=== PATIENT | female | born 1985 | race Caucasian/White ===

== ENCOUNTER 2018-08-20 13:06 | Emergency (ER) | payer SELFPAY ==
[2018-08-20] MEDS ORDERED: ONDANSETRON 4 MG (ODT) TAB ONE (14:20)
[2018-08-20] MEDS ORDERED: MEPERIDINE HCL 50 MG/ML AMP ONE (14:20)
--- NOTE | 2018-08-20 14:50 | ER ---
Nurse's Notes [facility] Name: Erin Harper Age: 33 yrs Sex: Female : 1985 Arrival Date: 08/20/2018 Time: 13:08 Bed 24 Private MD: None, None Diagnosis: Muscle spasm Presentation: 08/20 13:10 Presenting complaint: Patient states: neck pain x 1 day with limited ROM. Transition of sv care: patient was not received from another setting of care. Onset of symptoms was August 19, 2018. Care prior to arrival: None. 13:10 Method Of Arrival: Ambulatory sv 13:10 Acuity: ARCHIE 4 sv 13:15 Risk Assessment: Do you want to hurt yourself or someone else? Patient reports no ca1 desire to harm self or others. 13:15 Initial Sepsis Screen: Does the patient meet any 2 criteria? No. Patient's initial ca1 sepsis screen is negative. Does the patient have a suspected source of infection? No. Patient's initial sepsis screen is negative. Triage Assessment: 13:10 General: Appears in no apparent distress. uncomfortable, Behavior is cooperative, sv appropriate for age. Neuro: Level of Consciousness is awake, alert, obeys commands, Oriented to person, place, time, situation, Gait is steady. Respiratory: Respiratory effort is even, unlabored, Respiratory pattern is regular, symmetrical. 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 - Social history:: Smoking status: Patient uses tobacco products, smokes one-half pack cigarettes per day. - Ebola Screening: : No symptoms or risks identified at this time. Screenin:15 Abuse screen: Denies threats or abuse. Denies injuries from another. Nutritional ca1 screening: No deficits noted. Tuberculosis screening: No symptoms or risk factors identified. Fall Risk None identified. Assessment: 13:15 General: Appears in no apparent distress. uncomfortable, Behavior is calm, cooperative, ca1 appropriate for age. Pain: Complains of pain in shoulder, neck. Pain currently is 10 out of 10 on a pain scale. Quality of pain is described as throbbing, Pain began 1 day ago. Is continuous, Aggravated by repositioning, turning the neck sideways, up and down. Neuro: Level of Consciousness is awake, alert, obeys commands, Oriented to person, place, time, situation, Denies dizziness. Cardiovascular: Heart tones S1 S2 present Capillary refill < 3 seconds Patient's skin is warm and dry. Respiratory: Airway is patent Respiratory effort is even, unlabored, Respiratory pattern is regular, symmetrical, Breath sounds are clear bilaterally. GI: Abdomen is round non-distended, Bowel sounds present X 4 quads. Abd is soft and non tender X 4 quads. : No deficits noted. No signs and/or symptoms were reported regarding the genitourinary system. EENT: No deficits noted. No signs and/or symptoms were reported regarding the EENT system. EENT: No deficits noted. No signs and/or symptoms were reported regarding the EENT system. Derm: Skin is intact, is healthy with good turgor, Skin is pink, warm \\T\\ dry. Musculoskeletal: Circulation, motion, and sensation intact. Capillary refill < 3 seconds. 14:33 Reassessment: Patient appears in no apparent distress at this time. Patient and/or ca1 family updated on plan of care and expected duration. Pain level reassessed. Patient is alert, oriented x 3, equal unlabored respirations, skin warm/dry/pink. Pt states her neck "snapped" while she was trying to straighten it. And she is still in pain, provider notfied. 15:00 Reassessment: Patient appears in no apparent distress at this time. Patient is alert, ca1 oriented x 3, equal unlabored respirations, skin warm/dry/pink. Instructed to avoid driving for today. Reported that she will be driven by her mom to home Patient states feeling better. Vital Signs: 13:11 BP 112 / 90; Pulse 99; Resp 20; Temp 97.5; Pulse Ox 99% ; Weight 108.86 kg; Height 5 sv ft. 1 in. (154.94 cm); Pain 9/10; 14:33 BP 126 / 92; Pulse 63; Resp 17 S; Pulse Ox 96% on R/A; ca1 15:00 BP 124 / 79; Pulse 69; Resp 18 S; Pulse Ox 99% on R/A; ca1 13:11 Body Mass Index 45.35 (108.86 kg, 154.94 cm) ED Course: 13:08 Patient arrived in ED. mr 13:08 None, None is Private Physician. mr 13:10 Triage completed. sv 13:11 Arm band placed on. sv 13:14 America Funes, RN is Primary Nurse. ca1 13:15 Patient has correct armband on for positive identification. Placed in gown. Bed in low ca1 position. Call light in reach. Side rails up X 1. Pulse ox on. NIBP on. Warm blanket given. 13:17 Nas Gannon PA is PHCP. jr8 13:17 Alexandro Boyd MD is Attending Physician. jr8 15:01 No provider procedures requiring assistance completed. Patient did not have IV access ca1 during this emergency room visit. Administered Medications: 14:05 Drug: Zofran 4 mg Route: PO; ca1 15:01 Follow up: Response: No adverse reaction; Nausea is decreased ca1 14:06 Drug: Demerol 50 mg Route: IM; Site: right deltoid; ca1 15:01 Follow up: Response: No adverse reaction; Pain is decreased ca1 Outcome: 14:49 Discharge ordered by . jr8 15:01 Discharged to home ambulatory, with family. ca1 15:01 Condition: stable 15:01 Discharge instructions given to patient, Instructed on discharge instructions, follow up and referral plans. medication usage, Demonstrated understanding of instructions, follow-up care, medications, Prescriptions given X 3. 15:03 Patient left the ED. ca1 Signatures: Kandy Spencer RN RN Radha Tovar mr Nas Gannon PA PA jr8 America Funes RN RN ca1 Corrections: (The following items were deleted from the chart) 13:22 13:10 Presenting complaint: Patient states: neck pain x 1 day. sv sv 15:03 15:00 Reassessment: Patient appears in no apparent distress at this time. Patient is ca1 alert, oriented x 3, equal unlabored respirations, skin warm/dry/pink. Patient states feeling better. ca1
--- NOTE | 2018-08-20 14:50 | EDPHYS ---
Physician Documentation [facility] Name: Erin Harper Age: 33 yrs Sex: Female : 1985 Arrival Date: 08/20/2018 Time: 13:08 Bed 24 Private MD: None, None ED Physician Alexandro Boyd HPI: 08/20 13:50 This 33 yrs old Female presents to ER via Ambulatory with complaints of Neck jr8 Problem. 13:50 The patient or guardian complains of decreased range of motion, pain. The symptoms are jr8 located on the posterior neck. Onset: The symptoms/episode began/occurred acutely, yesterday. Context: The problem was sustained at work, The neck injury/problem resulted from from unknown cause. Associated signs and symptoms: The patient has no apparent associated signs or symptoms. The pain does not radiate. Modifying factors: The symptoms are alleviated by nothing. the symptoms are aggravated by movement, pressure. Severity of symptoms: At their worst the symptoms were moderate, in the emergency department the symptoms are unchanged. The patient has not experienced similar symptoms in the past. The patient has not recently seen a physician. Stated that while at work started to feel pain to posterior neck. Denies trauma or work related incident. Stated that as the night went on and then while sleeping last night pain became more persistent. Cannot tolerate pain now. Denies dysphagia or fevers. 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 - Social history:: Smoking status: Patient uses tobacco products, smokes one-half pack cigarettes per day. - Ebola Screening: : No symptoms or risks identified at this time. ROS: 13:50 Eyes: Negative for injury, pain, redness, and discharge, ENT: Negative for injury, jr8 pain, and discharge, Cardiovascular: Negative for chest pain, palpitations, and edema, Respiratory: Negative for shortness of breath, cough, wheezing, and pleuritic chest pain, Abdomen/GI: Negative for abdominal pain, nausea, vomiting, diarrhea, and constipation, Back: Negative for injury and pain, MS/Extremity: Negative for injury and deformity, Skin: Negative for injury, rash, and discoloration, Neuro: Negative for headache, weakness, numbness, tingling, and seizure. 13:50 Neck: Positive for pain with movement, pain at rest, stiffness, tenderness. Exam: 13:50 Eyes: Pupils equal round and reactive to light, extra-ocular motions intact. Lids and jr8 lashes normal. Conjunctiva and sclera are non-icteric and not injected. Cornea within normal limits. Periorbital areas with no swelling, redness, or edema. ENT: Nares patent. No nasal discharge, no septal abnormalities noted. Tympanic membranes are normal and external auditory canals are clear. Oropharynx with no redness, swelling, or masses, exudates, or evidence of obstruction, uvula midline. Mucous membranes moist. Cardiovascular: Regular rate and rhythm with a normal S1 and S2. No gallops, murmurs, or rubs. Normal PMI, no JVD. No pulse deficits. Respiratory: Lungs have equal breath sounds bilaterally, clear to auscultation and percussion. No rales, rhonchi or wheezes noted. No increased work of breathing, no retractions or nasal flaring. Abdomen/GI: Soft, non-tender, with normal bowel sounds. No distension or tympany. No guarding or rebound. No evidence of tenderness throughout. Skin: Warm, dry with normal turgor. Normal color with no rashes, no lesions, and no evidence of cellulitis. MS/ Extremity: Pulses equal, no cyanosis. Neurovascular intact. Full, normal range of motion. Neuro: Awake and alert, GCS 15, oriented to person, place, time, and situation. Cranial nerves II-XII grossly intact. Motor strength 5/5 in all extremities. Sensory grossly intact. Cerebellar exam normal. Normal gait. 13:50 Neck: External neck: tenderness, that is moderate, of the occiput, left mid cervical area, right mid cervical area, left trapezius and right trapezius, C-spine: appears grossly normal, Thyroid: appears normal, Trachea: is midline with no obvious abnormalities, ROM/movement: pain, that is moderate, with any movement, Lymph nodes: no appreciated lymphadenopathy. 13:50 Back: pain, that is mild, of the left trapezius and right trapezius, ROM is painful, normal spinal alignment noted, CVA tenderness, is absent. Vital Signs: 13:11 BP 112 / 90; Pulse 99; Resp 20; Temp 97.5; Pulse Ox 99% ; Weight 108.86 kg; Height 5 sv ft. 1 in. (154.94 cm); Pain 9/10; 14:33 BP 126 / 92; Pulse 63; Resp 17 S; Pulse Ox 96% on R/A; ca1 15:00 BP 124 / 79; Pulse 69; Resp 18 S; Pulse Ox 99% on R/A; ca1 13:11 Body Mass Index 45.35 (108.86 kg, 154.94 cm) sv MDM: 13:17 Patient medically screened. jr8 13:50 Data reviewed: vital signs, nurses notes, and as a result, I will discharge patient. jr8 Data interpreted: Pulse oximetry: on room air is 99 %. Interpretation: normal. Counseling: I had a detailed discussion with the patient and/or guardian regarding: the historical points, exam findings, and any diagnostic results supporting the discharge/admit diagnosis, the need for outpatient follow up, a family practitioner, to return to the emergency department if symptoms worsen or persist or if there are any questions or concerns that arise at home. Administered Medications: 14:05 Drug: Zofran 4 mg Route: PO; ca1 15:01 Follow up: Response: No adverse reaction; Nausea is decreased ca1 14:06 Drug: Demerol 50 mg Route: IM; Site: right deltoid; ca1 15:01 Follow up: Response: No adverse reaction; Pain is decreased ca1 Disposition: 17:13 Co-signature as Attending Physician, Alexandro Boyd MD. ma2 Disposition: 08/20/18 14:49 Discharged to Home. Impression: Muscle spasm. - Condition is Stable. - Discharge Instructions: Muscle Cramps and Spasms. - Prescriptions for Ibuprofen 800 mg Oral Tablet - take 1 tablet by ORAL route every 12 hours As needed take with food; 20 tablet. Zanaflex 4 mg Oral Tablet - take 1 tablet by ORAL route every 8 hours As needed; 20 tablet. Tramadol 50 mg Oral Tablet - take 1 tablet by ORAL route every 8 hours as needed; 12 tablet. - Medication Reconciliation Form, Thank You Letter, Antibiotic Education, Prescription Opioid Use, Work release form, Family Work Release form. - Follow up: Private Physician; When: 5 - 6 days; Reason: Recheck today's complaints, Continuance of care, Re-evaluation by your physician. - Problem is new. - Symptoms have improved. Signatures: Kandy Spencer, RN RN Nas Nance PA PA jr8 Alexandro Boyd MD MD ma2 America Funes RN RN ca1 Corrections: (The following items were deleted from the chart) 15:03 14:49 08/20/2018 14:49 Discharged to Home. Impression: Muscle spasm. Condition is ca1 Stable. Forms are Medication Reconciliation Form, Thank You Letter, Antibiotic Education, Prescription Opioid Use. Follow up: Private Physician; When: 5 - 6 days; Reason: Recheck today's complaints, Continuance of care, Re-evaluation by your physician. Problem is new. Symptoms have improved. jr8
== END 2018-08-20 15:03 | disposition home or self-care (01) ==
LOC: ER 13:06
DX: M62.830 Muscle spasm of back (principal); F17.210 Nicotine dependence, cigarettes, uncomplicated
CPT/HCPCS: 96372; 99283; J2175

== ENCOUNTER 2019-03-20 13:21 | Emergency (ER) | payer SELFPAY ==
[2019-03-20] MEDS ORDERED: dexAMETHasone 10 MG/ML VIAL ONE (14:42)
[2019-03-20] MEDS ORDERED: ALBUTEROL 2.5 MG/3 ML NEB SOL ONE (14:42)
[2019-03-20] MEDS ORDERED: IPRATROPIUM BROM 0.5MG/2.5ML ONE (14:42)
--- NOTE | 2019-03-20 16:39 | RAD REPORT ---
EXAM DESCRIPTION: RAD - Chest Pa And Lat (2 Views) - 03/20/2019 4:04 pm CLINICAL HISTORY: COUGH COMPARISON: None. TECHNIQUE: PA and lateral views of the chest were obtained. FINDINGS: The lungs are clear of a mass or consolidation. Lung base markings are mildly prominent po ssibly baseline for the patient. Significant edema or infiltrate of the lung parenchyma doubtful. H eart size is normal and central vasculature is within normal limits. No pleural effusion or pneumoth orax seen. No acute bony finding noted. No aortic abnormality. IMPRESSION: No mass, consolidation or significant cardiopulmonary finding.
--- NOTE | 2019-03-20 17:22 | EDPHYS ---
Physician Documentation [facility] Name: Erin Harper Age: 34 yrs Sex: Female : 1985 Arrival Date: 03/20/2019 Time: 13:23 Bed 28 Private MD: ED Physician Buddy Paige HPI: 03/20 14:18 This 34 yrs old Female presents to ER via Ambulatory with complaints of jmm Cough, Sore Throat, Shortness Of Breath. 14:18 The patient or guardian reports cough. Onset: The symptoms/episode began/occurred jmm gradually, 2 day(s) ago. Modifying factors: The symptoms are alleviated by nothing, the symptoms are aggravated by nothing. Associated signs and symptoms: Pertinent positives: sore throat, Pertinent negatives: chest pain. This is a 34 year old female with a history of anxiety, depression that presents to the ED with complaints of sore throat, cough, body aches beginning approx 2 days ago. . Historical: - Allergies: 13:28 No Known Allergies; sv - PMHx: 13:28 Anxiety; Depression; pinched sciatic nerve; sv - PSHx: 13:28 ; sv - Immunization history:: Flu vaccine is up to date. - Social history:: Smoking status: Patient uses tobacco products, denies chronic smoking, but will smoke occasionally. - Ebola Screening: : No symptoms or risks identified at this time. ROS: 17:18 Abdomen/GI: Negative for abdominal pain, nausea, vomiting, diarrhea, and constipation. jmm 17:18 Constitutional: Positive for body aches, chills. 17:18 Respiratory: Positive for cough. 17:18 All other systems are negative. Exam: 14:30 Constitutional: This is a well developed, well nourished patient who is awake, alert, jmm and in no acute distress. Head/Face: atraumatic. Eyes: EOMI, no conjunctival erythema appreciated ENT: Moist Mucus Membranes Neck: Trachea midline, Supple Chest/axilla: Normal chest wall appearance and motion. Cardiovascular: Regular rate and rhythm. No edema appreciated Respiratory: Normal respirations, no respiratory distress appreciated Abdomen/GI: Non distended, soft Back: Normal ROM Skin: General appearance color normal MS/ Extremity: Moves all extremities, no obvious deformities appreciated, no edema noted to the lower extremities Neuro: Awake and alert, normal gait Psych: Behavior is normal, Mood is normal, Patient is cooperative and pleasant 14:30 ENT: Posterior pharynx: erythema, that is mild. Vital Signs: 13:29 BP 125 / 85; Pulse 82; Resp 24; Temp 98; Pulse Ox 100% ; Weight 108.86 kg; Height 5 ft. sv 1 in. (154.94 cm); 15:33 BP 122 / 71; Pulse 77; Resp 16; Pulse Ox 100% on R/A; tr5 13:29 Body Mass Index 45.35 (108.86 kg, 154.94 cm) sv MDM: 14:18 Patient medically screened. [facility] 17:17 Data reviewed: vital signs, nurses notes. [facility] 17:19 Counseling: I had a detailed discussion with the patient and/or guardian regarding: the [facility] historical points, exam findings, and any diagnostic results supporting the discharge/admit diagnosis, lab results, radiology results, the need for outpatient follow up, to return to the emergency department if symptoms worsen or persist or if there are any questions or concerns that arise at home. ED course: Patient is alert and non toxic in appearance in the ED. No signs of resp distress appreciated. Patient understood and agrees with the plan of care. . 03/20 13:29 Order name: Flu; Complete Time: 14:18 sv 03/20 13:29 Order name: Strep; Complete Time: 14:18 sv 03/20 13:45 Order name: Chest Pa And Lat (2 Views) XRAY; Complete Time: 16:41 sv 03/20 14:04 Order name: Throat Culture EDMS Administered Medications: 14:45 Drug: Decadron 10 mg Route: IM; Site: right deltoid; tr5 14:45 Drug: DuoNeb (3:1) (2.5 mg - 0.5 mg) 3 ml Route: Nebulizer; tr5 Disposition: 03/21 07:33 Co-signature as Attending Physician, Buddy Paige MD I agree with the assessment and kdr plan of care. Disposition: 03/20/19 17:21 Discharged to Home. Impression: Acute pharyngitis, Acute bronchitis. - Condition is Stable. - Discharge Instructions: Acute Bronchitis, Adult, Pharyngitis. - Prescriptions for Zithromax Z- Petey 250 mg Oral Tablet - take 1 tablet by ORAL route as directed for 5 days Day 1 - take two (2) tablets one time. Day 2, 3, 4 , 5 take one (1) tablet once daily.; 6 tablet. Albuterol Sulfate 90 mcg/actuation - inhale 1-2 puff by INHALATION route every 4-6 hours; 1 Inhaler. - Medication Reconciliation Form, Thank You Letter, Antibiotic Education, Prescription Opioid Use form. - Work release form (03/20/19 18:59). tr5 - Follow up: Private Physician; When: 2 - 3 days; Reason: Recheck today's complaints, Continuance of care, Re-evaluation by your physician. Signatures: Dispatcher [employer] Kandy Panchal RN RN Buddy Callahan MD MD kdr Mickail, Joel, PA PA jmm Rodriguez, Tommie, RN RN tr5 Corrections: (The following items were deleted from the chart) 03/20 17:52 17:21 03/20/2019 17:21 Discharged to Home. Impression: Acute pharyngitis; Acute tr5 bronchitis. Condition is Stable. Forms are Medication Reconciliation Form, Thank You Letter, Antibiotic Education, Prescription Opioid Use. Follow up: Private Physician; When: 2 - 3 days; Reason: Recheck today's complaints, Continuance of care, Re-evaluation by your physician. sherry
--- NOTE | 2019-03-20 17:22 | ER ---
Nurse's Notes [facility] Name: Erin Harper Age: 34 yrs Sex: Female : 1985 Arrival Date: 03/20/2019 Time: 13:23 Bed 28 Private MD: Diagnosis: Acute pharyngitis;Acute bronchitis Presentation: 03/20 13:26 Presenting complaint: Patient states: non-productive cough, chest congestion, SOB, sore sv throat, ears itching, nasal drainage x 1 day. Transition of care: patient was not received from another setting of care. Onset of symptoms was March 19, 2019. Risk Assessment: Do you want to hurt yourself or someone else? Patient reports no desire to harm self or others. Care prior to arrival: None. 13:26 Method Of Arrival: Ambulatory sv 13:26 Acuity: ARCHIE 3 sv 14:10 Initial Sepsis Screen: Does the patient meet any 2 criteria? No. Patient's initial tr5 sepsis screen is negative. Does the patient have a suspected source of infection? No. Patient's initial sepsis screen is negative. Historical: - Allergies: 13:28 No Known Allergies; sv - PMHx: 13:28 Anxiety; Depression; pinched sciatic nerve; sv - PSHx: 13:28 ; sv - Immunization history:: Flu vaccine is up to date. - Social history:: Smoking status: Patient uses tobacco products, denies chronic smoking, but will smoke occasionally. - Ebola Screening: : No symptoms or risks identified at this time. Screenin:16 Abuse screen: Denies threats or abuse. Nutritional screening: No deficits noted. tr5 Tuberculosis screening: No symptoms or risk factors identified. Fall Risk None identified. Assessment: 14:16 General: Appears uncomfortable, Behavior is calm, cooperative, appropriate for age. tr5 Pain: Complains of pain in Throat. 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 Cardiovascular: Heart tones present Capillary refill < 3 seconds. Respiratory: Reports shortness of breath cough that is Airway is patent Respiratory effort is even, labored, relaxed, Respiratory pattern is regular, symmetrical, Breath sounds are clear bilaterally. GI: No signs and/or symptoms were reported involving the gastrointestinal system. : No signs and/or symptoms were reported regarding the genitourinary system. EENT: No signs and/or symptoms were reported regarding the EENT system. Throat is clear. Derm: No signs and/or symptoms reported regarding the dermatologic system. Musculoskeletal: No signs and/or symptoms reported regarding the musculoskeletal system. Vital Signs: 13:29 BP 125 / 85; Pulse 82; Resp 24; Temp 98; Pulse Ox 100% ; Weight 108.86 kg; Height 5 ft. sv 1 in. (154.94 cm); 15:33 BP 122 / 71; Pulse 77; Resp 16; Pulse Ox 100% on R/A; tr5 13:29 Body Mass Index 45.35 (108.86 kg, 154.94 cm) sv ED Course: 13:23 Patient arrived in ED. mr 13:28 Triage completed. sv 13:29 Arm band placed on. sv 13:58 Iker Gutierrez PA is PHCP. [facility] 13:58 Buddy Paige MD is Attending Physician. [facility] 14:04 Jonathan Cole RN is Primary Nurse. tr5 14:16 Bed in low position. Call light in reach. Side rails up X 1. tr5 16:05 Chest Pa And Lat (2 Views) XRAY In Process Unspecified. EDMS 17:51 No provider procedures requiring assistance completed. Patient did not have IV access tr5 during this emergency room visit. Administered Medications: 14:45 Drug: Decadron 10 mg Route: IM; Site: right deltoid; tr5 14:45 Drug: DuoNeb (3:1) (2.5 mg - 0.5 mg) 3 ml Route: Nebulizer; tr5 Outcome: 17:21 Discharge ordered by . [facility] 17:51 Discharged to home ambulatory. tr5 17:51 Condition: stable 17:51 Discharge instructions given to patient, Instructed on discharge instructions, follow up and referral plans. medication usage, Demonstrated understanding of instructions, follow-up care, medications, Prescriptions given X 2. 17:52 Patient left the ED. tr5 Signatures: Dispatcher [employer] Kandy Panchal RN RN sv Mickail, Joel, PA PA jacquie LiaaRadha mr Jonathan Cole RN RN tr5
[2019-03-20 19:44] VITALS: TEMP 98; O2SAT 100
[2019-03-20 19:45] VITALS: BP 122/71
== END 2019-03-20 17:52 | disposition home or self-care (01) ==
LOC: ER 13:21
DX: J20.9 Acute bronchitis, unspecified (principal); J02.9 Acute pharyngitis, unspecified; Z72.0 Tobacco use
CPT/HCPCS: 71046; 87070; 87081; 87804; 94640; 96372; 99284; J1100

== ENCOUNTER 2019-04-27 18:27 | Emergency (ER) | payer SELFPAY ==
[2019-04-27] MEDS ORDERED: ACETAMINOPHEN 500 MG TAB ONE (19:02)
[2019-04-27] MEDS ORDERED: CYCLOBENZAPRINE 10 MG TAB ONE (19:02)
[2019-04-27] MEDS ORDERED: dexAMETHasone 4 MG TAB ONE (19:02)
[2019-04-27] MEDS ORDERED: IBUPROFEN 400 MG TAB ONE (19:03)
[2019-04-27 19:26] LABS: Urine Blood TRACE (NEG); Urine Glucose NEGATIVE (NEG); Urine Protein NEGATIVE (NEG); Urine Specific Gravity >1.030 (1.005-1.030); Urine pH 5.5 (5.0-7.0)
[2019-04-27 19:31] LABS: Urine Bacteria LOADED /HPF (<20); Urine Culture Reflex Order REFLEXED; Urine RBC <5 /HPF (NONE SEEN)
--- NOTE | 2019-04-27 20:14 | ER ---
Nurse's Notes [facility] Name: Erin Harper Age: 34 yrs Sex: Female : 1985 Arrival Date: 04/27/2019 Time: 18:28 Bed 13 Private MD: Diagnosis: Acute cystitis;Low back pain Presentation: 04/27 18:36 Presenting complaint: Patient states: low back pain that radiates down the legs, denies sv injury. Transition of care: patient was not received from another setting of care. Onset of symptoms was April 27, 2019. Care prior to arrival: None. 18:36 Method Of Arrival: Ambulatory sv 18:36 Acuity: ARCHIE 4 sv Historical: - Allergies: 18:37 No Known Allergies; sv - PMHx: 18:37 Anxiety; Depression; pinched sciatic nerve; sv - PSHx: 18:37 ; sv - Immunization history:: Flu vaccine is up to date. - Social history:: Smoking status: Patient uses tobacco products, smokes one-half pack cigarettes per day. - Ebola Screening: : No symptoms or risks identified at this time. Screenin:46 Abuse screen: Denies threats or abuse. Nutritional screening: No deficits noted. ea Tuberculosis screening: No symptoms or risk factors identified. Fall Risk None identified. Assessment: 19:45 General: Appears uncomfortable, Behavior is calm, cooperative, appropriate for age. ea Pain: Complains of pain in left leg and right low back and left low back. Neuro: Level of Consciousness is awake, alert, obeys commands, Oriented to person, place, time, situation. Cardiovascular: Patient's skin is warm and dry. Respiratory: Airway is patent Respiratory effort is even, unlabored, Respiratory pattern is regular, symmetrical. Derm: Skin is pink, warm \T\ dry. 20:04 Reassessment: Patient and/or family updated on plan of care and expected duration. Pain ea level reassessed. Patient is alert, oriented x 3, equal unlabored respirations, skin warm/dry/pink. Discharge instruction given to patient, verbalized the understanding of instruction. Pt left ED ambulatory, tolerating well. Vital Signs: 18:38 BP 116 / 90; Pulse 85; Resp 20; Temp 97.9; Pulse Ox 100% ; Weight 108.86 kg; Height 5 sv ft. 0 in. (152.40 cm); Pain 10/10; 19:50 BP 120 / 88; Pulse 80; Resp 18; Pulse Ox 99% on R/A; ea 18:38 Body Mass Index 46.87 (108.86 kg, 152.40 cm) sv ED Course: 18:28 Patient arrived in ED. as 18:37 Triage completed. sv 18:38 Arm band placed on. sv 18:40 [facility]C [facility] la1 18:40 Alexandro Boyd MD is Attending Physician. la1 18:58 Carolin Parrish RN is Primary Nurse. ea 19:46 Patient has correct armband on for positive identification. Bed in low position. Call ea light in reach. 20:03 No provider procedures requiring assistance completed. Patient did not have IV access ea during this emergency room visit. Administered Medications: 19:10 Drug: Tylenol 1000 mg Route: PO; ea 20:00 Follow up: Response: No adverse reaction ea 19:10 Drug: Decadron 10 mg Route: PO; ea 20:00 Follow up: Response: No adverse reaction ea 19:11 Drug: Motrin 800 mg Route: PO; ea 20:00 Follow up: Response: No adverse reaction ea 19:11 Drug: Flexeril 10 mg Route: PO; ea 20:00 Follow up: Response: No adverse reaction ea Outcome: 19:47 Discharge ordered by . la1 20:04 Discharged to home ambulatory. ea 20:04 Condition: stable 20:04 Discharge instructions given to patient, Instructed on discharge instructions, follow up and referral plans. medication usage, Demonstrated understanding of instructions, follow-up care, medications, Prescriptions given X 2. 20:05 Patient left the ED. ea Addendum: 05/01/2019 08:03 Addendum: Culture Results: Positive urine culture. No further action required. Bacteria s s sensitive to prescribed antibiotic. Signatures: Kandy Spencer RN RN sv Martinez, Amelia as Smirch, Shelby, RN RN Mayo Barron FNP-C FNP-[facility] Carolin Parrish RN RN ea
--- NOTE | 2019-04-27 20:15 | EDPHYS ---
Physician Documentation [facility] Name: Erin Hraper Age: 34 yrs Sex: Female : 1985 Arrival Date: 04/27/2019 Time: 18:28 Bed 13 Private MD: ED Physician Alexandro Boyd HPI: 04/27 19:03 This 34 yrs old Female presents to ER via Ambulatory with complaints of Back la1 Pain, Leg Pain. 19:03 The patient presents with pain that is acute, with no known mechanism of injury. The la1 symptoms are located in the left low back and right low back. Onset: The symptoms/episode began/occurred 2 day(s) ago. The pain radiates to the left leg. Associated signs and symptoms: Pertinent negatives: abdominal pain, chest pain, constipation, dysuria, headache, hematuria, incontinence, nausea, urinary retention, vomiting, weakness. The problem was sustained from unknown cause. Modifying factors: The patient symptoms are alleviated by nothing, the patient symptoms are aggravated by any movement, bending, lifting, movement. Severity of symptoms: At their worst the symptoms were moderate. The patient has experienced a previous episode. pt reports working at [employer] having progressively worsening back pain for the last few weeks that has peaked in the last two days, pain appears to be worse on the left than the right, pt reports sciatic like sx as well.. Historical: - Allergies: 18:37 No Known Allergies; sv - PMHx: 18:37 Anxiety; Depression; pinched sciatic nerve; sv - PSHx: 18:37 ; sv - Immunization history:: Flu vaccine is up to date. - Social history:: Smoking status: Patient uses tobacco products, smokes one-half pack cigarettes per day. - Ebola Screening: : No symptoms or risks identified at this time. ROS: 19:04 Constitutional: Negative for fever, chills, and weight loss, Eyes: Negative for injury, la1 pain, redness, and discharge, ENT: Negative for injury, pain, and discharge, Neck: Negative for injury, pain, and swelling, Cardiovascular: Negative for chest pain, palpitations, and edema, Respiratory: Negative for shortness of breath, cough, wheezing, and pleuritic chest pain, Abdomen/GI: Negative for abdominal pain, nausea, vomiting, diarrhea, and constipation. 19:04 : Negative for injury, bleeding, discharge, and swelling, MS/Extremity: Negative for injury and deformity, Neuro: Negative for headache, weakness, numbness, tingling, and seizure. 19:04 Back: Positive for decreased range of motion, pain at rest, pain with movement, radiated pain. Exam: 19:05 Constitutional: This is a well developed, well nourished patient who is awake, alert, la1 and in no acute distress. Head/Face: Normocephalic, atraumatic. Eyes: Periorbital areas with no swelling, redness, or edema. ENT: Mucous membranes moist. Neck: Trachea midline, no thyromegaly or masses palpated, and no cervical lymphadenopathy. Supple, full range of motion without nuchal rigidity, or vertebral point tenderness. No Meningismus. Chest/axilla: Normal chest wall appearance and motion. Nontender with no deformity. No lesions are appreciated. Cardiovascular: Regular rate and rhythm with a normal S1 and S2. No gallops, murmurs, or rubs. Normal PMI, no JVD. No pulse deficits. Respiratory: Lungs have equal breath sounds bilaterally, clear to auscultation No rales, rhonchi or wheezes noted. No increased work of breathing, no retractions or nasal flaring. 19:05 Back: ROM is painful, CVA tenderness, is absent, muscle spasm, is not present, Straight leg raises: pain bilaterally. Vital Signs: 18:38 BP 116 / 90; Pulse 85; Resp 20; Temp 97.9; Pulse Ox 100% ; Weight 108.86 kg; Height 5 sv ft. 0 in. (152.40 cm); Pain 10/10; 19:50 BP 120 / 88; Pulse 80; Resp 18; Pulse Ox 99% on R/A; ea 18:38 Body Mass Index 46.87 (108.86 kg, 152.40 cm) sv MDM: 18:40 Patient medically screened. la1 19:46 Data reviewed: vital signs, nurses notes, and as a result, I will discharge patient. la1 Data interpreted: Pulse oximetry: on room air is 100 %. Counseling: I had a detailed discussion with the patient and/or guardian regarding: the historical points, exam findings, and any diagnostic results supporting the discharge/admit diagnosis, lab results, the need for outpatient follow up, a family practitioner, to return to the emergency department if symptoms worsen or persist or if there are any questions or concerns that arise at home. 04/27 19:11 Order name: Urine Microscopic Only; Complete Time: 19:32 ea 04/27 19:12 Order name: Urine Dipstick--Ancillary (enter results); Complete Time: 19:32 iw 04/27 19:12 Order name: Urine --Ancillary (enter results); Complete Time: 19:32 iw 04/27 19:33 Order name: Urine Culture [facility] 04/27 18:55 Order name: Urine Dipstick-Ancillary (obtain specimen); Complete Time: 19:12 la1 04/27 18:55 Order name: Urine Test (obtain specimen); Complete Time: 19:12 la1 Administered Medications: 19:10 Drug: Tylenol 1000 mg Route: PO; ea 20:00 Follow up: Response: No adverse reaction ea 19:10 Drug: Decadron 10 mg Route: PO; ea 20:00 Follow up: Response: No adverse reaction ea 19:11 Drug: Motrin 800 mg Route: PO; ea 20:00 Follow up: Response: No adverse reaction ea 19:11 Drug: Flexeril 10 mg Route: PO; ea 20:00 Follow up: Response: No adverse reaction ea Disposition: 04/27/19 19:47 Discharged to Home. Impression: Acute cystitis, Low back pain. - Condition is Stable. - Discharge Instructions: Back Pain, Adult, Musculoskeletal Pain, Urinary Tract Infection, Adult, Back Exercises, [id number]. - Prescriptions for Cyclobenzaprine 10 mg Oral Tablet - take 1 tablet by ORAL route every 8 hours As needed; 30 tablet. Macrobid 100 mg Oral Capsule - take 1 capsule by ORAL route every 12 hours for 7 days; 14 capsule. - Work release form, Medication Reconciliation Form, Thank You Letter form. - Follow up: Private Physician; When: 2 - 3 days; Reason: Recheck today's complaints, Re-evaluation by your physician. Follow up: Emergency Department; When: As needed. - Problem is new. - Symptoms have improved. Addendum: 05/08/2019 21:33 Co-signature as Attending Physician, Alexandro dhillon a2 Signatures: Dispatcher MedHoAlbuquerque Indian Health CenterKandy Haynes RN Mayo Salazar, MATHEMATICS EDUCATION PROFESSOR-C MATHEMATICS EDUCATION PROFESSOR-Cla1 Carolin Parrish RN RN ea Alzahri, Mohammad, MD MD ma2 Corrections: (The following items were deleted from the chart) 04/27 20:05 19:47 04/27/2019 19:47 Discharged to Home. Impression: Acute cystitis; Low back pain. ea Condition is Stable. Forms are Medication Reconciliation Form, Thank You Letter, Antibiotic Education, Prescription Opioid Use. Follow up: Private Physician; When: 2 - 3 days; Reason: Recheck today's complaints, Re-evaluation by your physician. Follow up: Emergency Department; When: As needed. Problem is new. Symptoms have improved. la1
[2019-04-27 20:18] VITALS: TEMP 97.9
[2019-04-27 20:19] VITALS: BP 120/88; O2SAT 99
== END 2019-04-27 20:05 | disposition home or self-care (01) ==
LOC: ER 18:27
DX: N30.00 Acute cystitis without hematuria (principal); F17.210 Nicotine dependence, cigarettes, uncomplicated
CPT/HCPCS: 81003; 81015; 81025; 87077; 87086; 87088; 87186; 99283; J8540

== ENCOUNTER 2019-05-28 10:37 | Emergency (ER) | payer SELFPAY ==
[2019-05-28 11:45] LABS: Urine Specific Gravity 1.025 (1.005-1.030)
[2019-05-28 11:45] LABS: Urine Blood 1+ (NEG); Urine Glucose NEGATIVE (NEG); Urine Protein NEGATIVE (NEG); Urine Specific Gravity 1.025 (1.005-1.030)
[2019-05-28] MEDS ORDERED: ACETAMINOPHEN 500 MG TAB ONE (11:51)
[2019-05-28 11:54] LABS: Urine Bacteria <20 /HPF (<20); Urine Culture Reflex Order NOT NEEDED; Urine RBC <5 /HPF (NONE SEEN)
--- NOTE | 2019-05-28 11:56 | ER ---
Nurse's Notes [facility] Name: Erin Harper Age: 34 yrs Sex: Female : 1985 Arrival Date: 05/28/2019 Time: 10:39 Bed 17 Private MD: Diagnosis: Candidiasis of vulva and vagina Presentation: 05/28 10:46 Presenting complaint: Vaginal itching and burning, increased whitish vaginal discharge hb x 3 days. Transition of care: patient was not received from another setting of care. Onset of symptoms was May 26, 2019. Risk Assessment: Do you want to hurt yourself or someone else? Patient reports no desire to harm self or others. Initial Sepsis Screen: Does the patient meet any 2 criteria? No. Patient's initial sepsis screen is negative. Does the patient have a suspected source of infection? No. Patient's initial sepsis screen is negative. Care prior to arrival: None. 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 - Coronavirus screen:: The patient has NOT traveled to [place], [place], or [place] in the past 14 days. The patient has NOT had contact with known/suspected case of Coronavirus? Proceed with normal triage procedures. - Social history:: Smoking status: Patient reports the use of cigarette tobacco products, smokes one-half pack cigarettes per day. - Ebola Screening: : No symptoms or risks identified at this time. Screenin:10 Abuse screen: Denies threats or abuse. Nutritional screening: No deficits noted. Tuberculosis screening: No symptoms or risk factors identified. Fall Risk None identified. Assessment: 11:01 General: Appears uncomfortable, Behavior is calm, cooperative, appropriate for age. Pain: Denies pain. Neuro: Level of Consciousness is awake, alert, obeys commands, Oriented to person, place, time, situation, Brinell Tester are equal bilaterally. Respiratory: Breath sounds are clear bilaterally. Denies shortness of breath. GI: Reports cramping, Patient currently denies nausea, vomiting. : Reports discharge, white, vaginal itching, since 3 days, internal and external itching Denies burning with urination, vaginal bleeding, Patient states that her has just returned home and they have had sexual intercourse approx 6x in the last 3 days. she states they have used a condom a few times and without a few times. Vital Signs: 10:47 BP 132 / 78; Pulse 82; Resp 16; Temp 97.8; Pulse Ox 100% on R/A; Weight 108.86 kg; hb Height 5 ft. 1 in. (154.94 cm); Pain 3/10; 10:47 Body Mass Index 45.35 (108.86 kg, 154.94 cm) hb ED Course: 10:39 Patient arrived in ED. rg4 10:47 Triage completed. 10:47 Arm band placed on. 10:51 Amy Yip FNP-C is [facility]. snw 10:51 Arden Wolf MD is Attending Physician. sn 11:01 Nati Cabezas, RN is Primary Nurse. 11:20 Urine collected: clean catch specimen, clear. ms 11:44 Nurse Practitioner and/or Physician Senior Financial Consultant to see patient. 11:44 Patient has correct armband on for positive identification. Bed in low position. Call light in reach. 12:15 No provider procedures requiring assistance completed. Patient did not have IV access during this emergency room visit. 19:07 Primary Nurse role handed off by Nati Cabezas, [place] Administered Medications: 12:05 Drug: DiFLUcan 200 mg Route: PO; Outcome: 11:55 Discharge ordered by . snw 12:15 Condition: improved 12:15 Discharge instructions given to patient, Instructed on discharge instructions, follow up and referral plans. safe sex practices, Demonstrated understanding of instructions, follow-up care, Prescriptions given X 1. 12:18 Patient left the ED. 12:25 Discharged to home ambulatory. Signatures: Kandy Spencer RN RN Amy Yip FNP-C MARKETING COMMUNITY LIAISON-Alanis Morataya ms, Heather, RN RN Karis Kapadia rg4 Nati Cabezas RN RN Corrections: (The following items were deleted from the chart) 19:07 19:06 No provider procedures requiring assistance completed. [facility] 19:06 Patient did not have IV access during this emergency room visit. [facility]
--- NOTE | 2019-05-28 11:56 | EDPHYS ---
Physician Documentation [facility] Name: Erin Harper Age: 34 yrs Sex: Female : 1985 Arrival Date: 05/28/2019 Time: 10:39 Bed 17 Private MD: ED Physician Arden Wolf HPI: 05/28 11:53 This 34 yrs old Female presents to ER via Ambulatory with complaints of snw Vaginal Itching, Vaginal Pain. 11:53 The patient presents with vaginal discharge, that is curd-like, patient has not had snw similar discharge in the past. Onset: The symptoms/episode began/occurred acutely. Modifying factors: the symptoms are aggravated by sexual intercourse. Associated signs and symptoms: Pertinent positives: burning. Severity of symptoms: At their worst the symptoms were moderate. The patient's method of control includes condom, and then unprotected. The patient has not experienced similar symptoms in the past. The patient has not recently seen a physician. 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 - Coronavirus screen:: The patient has NOT traveled to [place], [place], or [place] in the past 14 days. The patient has NOT had contact with known/suspected case of Coronavirus? Proceed with normal triage procedures. - Social history:: Smoking status: Patient reports the use of cigarette tobacco products, smokes one-half pack cigarettes per day. - Ebola Screening: : No symptoms or risks identified at this time. ROS: 11:47 Constitutional: Negative for fever, chills, and weight loss, Eyes: Negative for injury, snw pain, redness, and discharge, ENT: Negative for injury, pain, and discharge, Neck: Negative for injury, pain, and swelling, Cardiovascular: Negative for chest pain, palpitations, and edema, Respiratory: Negative for shortness of breath, cough, wheezing, and pleuritic chest pain, Abdomen/GI: Negative for abdominal pain, nausea, vomiting, diarrhea, and constipation, Back: Negative for injury and pain, MS/Extremity: Negative for injury and deformity, Skin: Negative for injury, rash, and discoloration, Neuro: Negative for headache, weakness, numbness, tingling, and seizure, Psych: Negative for depression, anxiety, suicide ideation, homicidal ideation, and hallucinations. 11:47 : Positive for burning and itching to vaginal area post coitus. Exam: 11:47 Constitutional: This is a well developed, well nourished patient who is awake, alert, snw and in no acute distress. Head/Face: Normocephalic, atraumatic. Eyes: Pupils equal round and reactive to light, extra-ocular motions intact. Lids and lashes normal. Conjunctiva and sclera are non-icteric and not injected. Cornea within normal limits. Periorbital areas with no swelling, redness, or edema. ENT: Nares patent. No nasal discharge, no septal abnormalities noted. Tympanic membranes are normal and external auditory canals are clear. Oropharynx with no redness, swelling, or masses, exudates, or evidence of obstruction, uvula midline. Mucous membranes moist. Neck: Trachea midline, no thyromegaly or masses palpated, and no cervical lymphadenopathy. Supple, full range of motion without nuchal rigidity, or vertebral point tenderness. No Meningismus. Chest/axilla: Normal chest wall appearance and motion. Nontender with no deformity. No lesions are appreciated. Cardiovascular: Regular rate and rhythm with a normal S1 and S2. No gallops, murmurs, or rubs. Normal PMI, no JVD. No pulse deficits. Respiratory: Lungs have equal breath sounds bilaterally, clear to auscultation and percussion. No rales, rhonchi or wheezes noted. No increased work of breathing, no retractions or nasal flaring. Abdomen/GI: Soft, non-tender, with normal bowel sounds. No distension or tympany. No guarding or rebound. No evidence of tenderness throughout. Back: No spinal tenderness. No costovertebral tenderness. Full range of motion. Skin: Warm, dry with normal turgor. Normal color with no rashes, no lesions, and no evidence of cellulitis. MS/ Extremity: Pulses equal, no cyanosis. Neurovascular intact. Full, normal range of motion. Neuro: Awake and alert, GCS 15, oriented to person, place, time, and situation. Cranial nerves II-XII grossly intact. Motor strength 5/5 in all extremities. Sensory grossly intact. Cerebellar exam normal. Normal gait. Psych: Awake, alert, with orientation to person, place and time. Behavior, mood, and affect are within normal limits. Vital Signs: 10:47 BP 132 / 78; Pulse 82; Resp 16; Temp 97.8; Pulse Ox 100% on R/A; Weight 108.86 kg; hb Height 5 ft. 1 in. (154.94 cm); Pain 3/10; 10:47 Body Mass Index 45.35 (108.86 kg, 154.94 cm) hb MDM: 10:51 Patient medically screened. snw 14:49 Data reviewed: vital signs, nurses notes. Data interpreted: Pulse oximetry: on room air snw is 100 %. Interpretation: normal. Counseling: I had a detailed discussion with the patient and/or guardian regarding: the historical points, exam findings, and any diagnostic results supporting the discharge/admit diagnosis, lab results, the need for outpatient follow up, to return to the emergency department if symptoms worsen or persist or if there are any questions or concerns that arise at home. Special discussion: Based on the history and exam findings, there is no indication for further emergent testing or inpatient evaluation. I discussed with the patient/guardian the need to see the primary care provider for further evaluation of the symptoms. 05/28 11:12 Order name: Urine Culture w 05/28 11:12 Order name: Urine Microscopic Only; Complete Time: 11:50 snw 05/28 11:12 Order name: Urine Test (obtain specimen); Complete Time: 11:15 snw 05/28 11:26 Order name: Urine Dipstick--Ancillary (enter results); Complete Time: 11:50 eb 05/28 11:28 Order name: Urine --Ancillary (enter results); Complete Time: 11:50 eb 05/28 11:12 Order name: Urine Dipstick-Ancillary (obtain specimen); Complete Time: 11:16 snw Administered Medications: 12:05 Drug: DiFLUcan 200 mg Route: PO; Disposition: 05/28/19 11:55 Discharged to Home. Impression: Candidiasis of vulva and vagina. - Condition is Stable. - Discharge Instructions: How to Take a Sitz Bath, Vaginal Yeast Infection, Adult. - Prescriptions for Vitamin 27- 0.8 mg Oral Tablet - take 1 tablet by ORAL route once daily; 30 tablet. - Medication Reconciliation Form, Thank You Letter, Antibiotic Education, Prescription Opioid Use form. - Follow up: Emergency Department; When: As needed; Reason: Worsening of condition. Follow up: Private Physician; When: 2 - 3 days; Reason: Recheck today's complaints, Continuance of care, Re-evaluation by your physician. Addendum: 05/30/2019 07:03 Co-signature as Attending Physician, Arden Wolf MD I agree with the assessment and c mann plan of care. Signatures: Dispatcher [employer] Kandy Panchal RN Arden Sanchez MD MD cha Therrien, Shelly, OBSTETRICAL NURSE-C OBSTETRICAL NURSE-Csnw Cuca Villavicencio, RN RN Nati Santana RN RN Corrections: (The following items were deleted from the chart) 05/28 12:18 11:55 05/28/2019 11:55 Discharged to Home. Impression: Candidiasis of vulva and vagina. sv Condition is Stable. Forms are Medication Reconciliation Form, Thank You Letter, Antibiotic Education, Prescription Opioid Use. Follow up: Emergency Department; When: As needed; Reason: Worsening of condition. Follow up: Private Physician; When: 2 - 3 days; Reason: Recheck today's complaints, Continuance of care, Re-evaluation by your physician. snw
[2019-05-28] MEDS ORDERED: FLUCONAZOLE 100 MG TAB ONE (12:05)
[2019-05-28 12:33] VITALS: BP 132/78; TEMP 97.8; O2SAT 100
== END 2019-05-28 12:18 | disposition home or self-care (01) ==
LOC: ER 10:37
DX: B37.3 Candidiasis of vulva and vagina (principal)
CPT/HCPCS: 81003; 81015; 81025; 87086; 87088; 99283

== ENCOUNTER 2022-06-01 10:23 | Emergency (ER) | payer SELFPAY ==
[2022-06-01] MEDS ORDERED: KETOROLAC 30 MG/ML INJ ONE (11:09)
[2022-06-01] MEDS ORDERED: ONDANSETRON 4 MG/2 ML VIAL ONE (11:09)
[2022-06-01] MEDS ORDERED: NA CHLORIDE 0.9% 1,000 ML ONE (11:09)
[2022-06-01 11:30] LABS: Urine Blood Negative (Negative); Urine Glucose Negative (Negative); Urine Protein Negative (Negative)
--- NOTE | 2022-06-01 11:57 | RAD REPORT ---
EXAM DESCRIPTION: CT - Stone Protocol - 06/01/2022 11:42 am CLINICAL HISTORY: Flank pain, kidney stone suspected COMPARISON: No comparisons TECHNIQUE: Axial 3 mm thick images were obtained without oral or IV contrast. The [id number] span s the entirety of the system including uppermost abdomen and lung bases. All CT scans are performed using dose optimization technique as appropriate and may include automated exposure control or mA/KV adjustment according to patient size. FINDINGS: No hydronephrosis is present and no obstructing ureteral calculi. No suspicious renal mass es. Isodense masses and pyelonephritis are not excluded on a stone protocol CT scan. No significant a drenal finding. Urinary bladder is tightly contracted limiting evaluation. No bladder calculi are see n. Uterus and ovaries show no suspicious findings. Imaged portions of the liver, spleen and pancreas show no suspicious findings on non-contrast imaging . No gallbladder or biliary tree abnormality identified. No suspicious bowel findings. No appendicitis. No hernia, mass or bulky lymphadenopathy noted. No free air, free fluid or inflammatory stranding. No acute bone or disc abnormality identifiable. No paraspinal mass. IMPRESSION: Noncontrast CT abdomen and pelvis shows no acute or emergent finding. Isodense masses and pyelonephritis are not excluded on stone protocol technique.
[2022-06-01 11:59] LABS: Potassium 4.2 mmol/L (3.5-5.1)
[2022-06-01 12:01] LABS: Absolute Lymphocytes (CBC) 2.5 K/uL (0.7-4.9); Hematocrit 39.2 % (36.0-45.0); Lymphocytes % 30.4 % (15.3-44.8); MPV 8.5 fL (7.6-11.3); RBC Red Blood Cell Count 4.73 M/uL (3.86-4.86)
--- NOTE | 2022-06-01 13:33 | RAD REPORT ---
EXAM DESCRIPTION: CT - Spine Lumbar Wo Con - 06/01/2022 1:05 pm CLINICAL HISTORY: Low back pain, no red flags, no prior management COMPARISON: Noncontrast CT abdomen imaging 06/01/2022 TECHNIQUE: Thin section axial imaging of the lumbar spine was performed. Sagittal and coronal recon struction images were generated and reviewed. All CT scans are performed using dose optimization technique as appropriate and may include automated exposure control or mA/KV adjustment according to patient size. FINDINGS: Lumbar bodies are normal in height and alignment. No fracture is seen. No lytic, sclerotic or expansile bony destructive process seen. T11-12 disc level shows anterior disc bulge and endplate spurring change. No paraspinal soft tissue mass identifiable. Paraspinal musculature is unremarkable . No herniation or significant disc bulge from T12-L1 thru L3-4. No canal or foramen stenosis. L4-5 disc level shows no herniation or significant disc bulge in the central canal. There is bulging disc material in the left exit foramen causing mild stenosis. There is still some perineural fat surr ounding the exiting nerve root. No facet degenerative change or ligamentous thickening to any measura ble degree. No herniation or significant disc bulge at L5-S1. No canal or foramen stenosis seen. Facet degenerati ve changes minimal. No pars interarticularis defects seen. IMPRESSION: L4-5 left foraminal disc bulge causing mild foraminal stenosis. Perineural fat is still seen around the exiting nerve root. L5-S1 facet joint degenerative change not causing canal or foramen stenosis.
[2022-06-01] MEDS ORDERED: METHYLPREDNISOLONE 125 MG INJ ONE (14:04)
[2022-06-01] MEDS ORDERED: HYDROCODONE/APAP 10/325 TAB ONE (14:04)
--- NOTE | 2022-06-01 14:29 | ER ---
Nurse's Notes [facility] Name: Erin Harper Age: 37 yrs Sex: Female : 1985 Arrival Date: 06/01/2022 Time: 10:23 Bed 18 Private MD: Diagnosis: Low back pain Presentation: 06/01 10:35 Chief complaint: Patient states: Low back pain for 1 week. Radiates into abdomen at ll1 times with some nausea. No fever. Strong urine smell, no dysuria. Coronavirus screen: Vaccine status: Patient reports receiving the 2nd dose of the covid vaccine. Client denies travel out of the [place] in the last 14 days. At this time, the client does not indicate any symptoms associated with coronavirus-19. Ebola Screen: Patient denies travel to an Ebola-affected area in the 21 days before illness onset. Initial Sepsis Screen: Does the patient meet any 2 criteria? No. Patient's initial sepsis screen is negative. Does the patient have a suspected source of infection? Yes: Dysuria/Frequency/Urgency/UTI. Risk Assessment: Do you want to hurt yourself or someone else? Patient reports no desire to harm self or others. Onset of symptoms was May 26, 2022. 10:35 Method Of Arrival: Ambulatory ll1 10:35 Acuity: ARCHIE 3 ll1 Historical: - Allergies: 10:37 No Known Allergies; ll1 - PMHx: 10:37 Depression; Anxiety; pinched sciatic nerve; ll1 - PSHx: 10:37 section; ll1 - Immunization history:: Client reports receiving the 2nd dose of the Covid vaccine. - Social history:: Smoking status: Patient reports the use of cigarette tobacco products, smokes one-half pack cigarettes per day. Screenin:38 [facility] ED Fall Risk Assessment (Adult) History of falling in the last 3 months, ld1 including since admission No falls in past 3 months (0 pts). Abuse screen: Denies threats or abuse. Denies injuries from another. Nutritional screening: On. Tuberculosis screening: No symptoms or risk factors identified. Assessment: 11:38 General: Appears in no apparent distress. comfortable, Behavior is calm, cooperative, ld1 appropriate for age. Pain: Complains of pain in low back area Pain does not radiate. Pain currently is 9 out of 10 on a pain scale. Quality of pain is described as throbbing. Neuro: Level of Consciousness is awake, alert, obeys commands, Oriented to person, place, time, situation, Appropriate for age. Cardiovascular: Capillary refill < 3 seconds Patient's skin is warm and dry. Respiratory: Airway is patent Respiratory effort is even, unlabored. GI: Abdomen is round non-distended. : Reports pain in bilateral flank(s). EENT: No signs and/or symptoms were reported regarding the EENT system. Derm: No signs and/or symptoms reported regarding the dermatologic system. Musculoskeletal: No signs and/or symptoms reported regarding the musculoskeletal system. 12:00 Reassessment: Patient appears in no apparent distress at this time. No changes from ld1 previously documented assessment. Patient and/or family updated on plan of care and expected duration. Pain level reassessed. 14:05 Reassessment: Pt c/o pain to right flank. Notified ERP - See [facility] for orders. ld1 Vital Signs: 10:35 BP 129 / 75; Pulse 93; Resp 18; Temp 98.0; Pulse Ox 98% ; Weight 113.4 kg; Height 5 ft. ll1 1 in. (154.94 cm); Pain 9/10; 11:38 BP 135 / 77; Pulse 94; Resp 18; Pulse Ox 98% on R/A; ld1 12:00 BP 101 / 55; Pulse 64; Resp 18; Pulse Ox 100% on R/A; ld1 14:05 BP 117 / 63; Pulse 59; Resp 18; Pulse Ox 100% on R/A; Pain 8/10; ld1 10:35 Body Mass Index 47.24 (113.40 kg, 154.94 cm) ll1 ED Course: 10:23 Patient arrived in ED. am2 10:24 Buddy Paige MD is Attending Physician. kdr 10:37 Triage completed. ll1 10:38 Arm band placed on Patient placed in an exam room, on a stretcher. ll1 11:18 Anat Chadwick, SAGRARIO is Primary Nurse. ld1 11:38 Patient has correct armband on for positive identification. Placed in gown. Bed in low ld1 position. Call light in reach. Side rails up X2. compliance monitor on. Pulse ox on. NIBP on. Door closed. Noise minimized. Warm blanket given. 11:38 No provider procedures requiring assistance completed. Inserted saline lock: 20 gauge ld1 in right antecubital area, using aseptic technique. Blood collected. 11:44 CT Stone Protocol In Process Unspecified. EDMS 13:07 CT Lumbar Spine Wo Con In Process Unspecified. EDMS 14:47 IV discontinued, intact, bleeding controlled, No redness/swelling at site. ld1 Administered Medications: 11:38 Drug: Ketorolac 15 mg Route: IVP; Site: right antecubital; ld1 11:38 Drug: Zofran (Ondansetron) 4 mg Route: IVP; Site: right antecubital; ld1 11:38 Drug: NS 0.9% 1000 ml Route: IV; Rate: 1 bolus; Site: right antecubital; ld1 14:04 Drug: [place] (HYDROcodone-acetaminophen) 10 mg-325 mg 1 tabs Route: PO; ld1 14:19 Follow up: Response: No adverse reaction ld1 14:04 Drug: SOLU-Medrol (methylPrednisoLONE) 125 mg Route: IVP; Site: right antecubital; ld1 14:19 Follow up: Response: No adverse reaction ld1 Medication: 11:38 VIS not applicable for this client. ld1 Outcome: 14:28 Discharge ordered by . kdr 14:47 Discharged to home ambulatory. ld1 14:47 Condition: stable 14:47 Discharge instructions given to patient, Instructed on discharge instructions, follow up and referral plans. Demonstrated understanding of instructions, follow-up care. 14:47 Patient left the ED. ld1 Signatures: Dispatcher [employer] EDAK Buddy Paige MD MD [facility] Angela Stein Lynsay, RN RN ll1 Anat Chadwick, SAGRARIO RN ld1
--- NOTE | 2022-06-01 14:29 | EDPHYS ---
Physician Documentation [facility] Name: Erin Harper Age: 37 yrs Sex: Female : 1985 Arrival Date: 06/01/2022 Time: 10:23 Bed 18 Private MD: ED Physician Buddy Paige HPI: 06/01 11:41 This 37 yrs old Female presents to ER via Ambulatory with complaints of Back Pain. kdr 11:41 Patient states that she has had low back pain for about a week. The pain radiates kdr around to her anterior lower abdomen at times with some nausea. She does have some mild discomfort also on the right side but not nearly as severe as on the left. She denies any fever she did say that her urine had a strong odor to it but that she denied dysuria as well. Patient is nontoxic-appearing and not particularly uncomfortable appearing either. Patient otherwise is stable and not require quiring immediate intervention. Onset: The symptoms/episode began/occurred gradually, 1 week(s) ago. Severity of symptoms: At their worst the symptoms were moderate severe just prior to arrival, in the emergency department the symptoms have improved mildly. The patient has not experienced similar symptoms in the past. The patient has not recently seen a physician. Historical: - Allergies: 10:37 No Known Allergies; ll1 - PMHx: 10:37 Depression; Anxiety; pinched sciatic nerve; ll1 - PSHx: 10:37 section; ll1 - Immunization history:: Client reports receiving the 2nd dose of the Covid vaccine. - Social history:: Smoking status: Patient reports the use of cigarette tobacco products, smokes one-half pack cigarettes per day. ROS: 11:41 Constitutional: Negative for fever, chills, and weight loss, Eyes: Negative for injury, kdr pain, redness, and discharge, Neck: Negative for injury, pain, and swelling, Cardiovascular: Negative for chest pain, palpitations, and edema, Respiratory: Negative for shortness of breath, cough, wheezing, and pleuritic chest pain, Abdomen/GI: Negative for abdominal pain, nausea, vomiting, diarrhea, and constipation, MS/Extremity: Negative for injury and deformity, Skin: Negative for injury, rash, and discoloration, Neuro: Negative for headache, weakness, numbness, tingling, and seizure activity. Psych: Negative for depression, anxiety, suicide ideation, homicidal ideation, and hallucinations, Allergy/Immunology: Negative for hives, rash, and allergies, Endocrine: Negative for neck swelling, polydipsia, polyuria, polyphagia, and marked weight changes, Hematologic/Lymphatic: Negative for swollen nodes, abnormal bleeding, and unusual bruising. 11:41 Back: Positive for pain at rest, pain with movement, flank pain, on the left, radiated pain. Exam: 11:41 Constitutional: This is a well developed, well nourished patient who is awake, alert, kdr and in no acute distress. Head/Face: Normocephalic, atraumatic. Eyes: Pupils equal round and reactive to light, extra-ocular motions intact. Lids and lashes normal. Conjunctiva and sclera are non-icteric and not injected. Cornea within normal limits. Periorbital areas with no swelling, redness, or edema. Neck: Trachea midline, no thyromegaly or masses palpated, and no cervical lymphadenopathy. Supple, full range of motion without nuchal rigidity, or vertebral point tenderness. No Meningismus. Chest/axilla: Normal chest wall appearance and motion. Nontender with no deformity. No lesions are appreciated. Cardiovascular: Regular rate and rhythm with a normal S1 and S2. No gallops, murmurs, or rubs. Normal PMI, no JVD. No pulse deficits. Respiratory: Lungs have equal breath sounds bilaterally, clear to auscultation and percussion. No rales, rhonchi or wheezes noted. No increased work of breathing, no retractions or nasal flaring. Abdomen/GI: Soft, non-tender, with normal bowel sounds. No distension or tympany. No guarding or rebound. No evidence of tenderness throughout. Skin: Warm, dry with normal turgor. Normal color with no rashes, no lesions, and no evidence of cellulitis. MS/ Extremity: Pulses equal, no cyanosis. Neurovascular intact. Full, normal range of motion. Neuro: Awake and alert, GCS 15, oriented to person, place, time, and situation. Cranial nerves II-XII grossly intact. Motor strength 5/5 in all extremities. Sensory grossly intact. Cerebellar exam normal. Normal gait. Psych: Awake, alert, with orientation to person, place and time. Behavior, mood, and affect are within normal limits. 11:41 Back: pain, that is mild, ROM is painful, normal spinal alignment noted, CVA tenderness, that is mild, is noted on the left, muscle spasm, is not present, Straight leg raises: of both lower extremities does not illicit pain. Vital Signs: 10:35 BP 129 / 75; Pulse 93; Resp 18; Temp 98.0; Pulse Ox 98% ; Weight 113.4 kg; Height 5 ft. ll1 1 in. (154.94 cm); Pain 9/10; 11:38 BP 135 / 77; Pulse 94; Resp 18; Pulse Ox 98% on R/A; ld1 12:00 BP 101 / 55; Pulse 64; Resp 18; Pulse Ox 100% on R/A; ld1 14:05 BP 117 / 63; Pulse 59; Resp 18; Pulse Ox 100% on R/A; Pain 8/10; ld1 10:35 Body Mass Index 47.24 (113.40 kg, 154.94 cm) ll1 MDM: 11:41 Data reviewed: vital signs, nurses notes, lab test result(s), radiologic studies. I kdr considered the following discharge prescriptions or medication management in the emergency department Medications were administered in the Emergency Department. See MAR. 14:28 Patient medically screened. kdr 14:37 ED course: The patient's laboratory data does not support a [facility] While the presentation can be varied and wide-ranging, the patient denies fever or headaches. Patient also denies vomiting or irritability. Physical exam does not reveal a fever or headache nor nausea and vomiting. Patient does not have photophobia. There is no evidence of upper respiratory infection or cranial nerve palsies. Additionally there is no focal neurologic deficit. The patient's laboratory work including a CBC and chemistry were normal. There was no elevation of the white count. There was no left shift. While the imaging available was not optimal, there was no suggestion from the imaging performed of an abscess or secondary finding secondary to that. I discussed the radiographic work-up with Dr. Kennedy. Hence the repeat CT isolating lumbar spine. Again and review with Dr. Kennedy he did not appreciate any primary or secondary signs that would give concern for possible abscess though this modality is not optimal. Unfortunately given the time of presentation it was the best that could be done.. 06/01 11:01 Order name: CBC with Diff; Complete Time: 12:21 kdr 06/01 11:01 Order name: Chem 7; Complete Time: 12:21 kdr 06/01 11:01 Order name: CT Stone Protocol; Complete Time: 12:21 kdr 06/01 11:30 Order name: Urine Dipstick-Ancillary; Complete Time: 11:43 EDMS 06/01 11:31 Order name: Urine --Ancillary (enter results); Complete Time: 12:24 eb 06/01 12:24 Order name: CT Lumbar Spine Wo Con; Complete Time: 13:57 kdr 06/01 11:01 Order name: Urine Dipstick-Ancillary (obtain specimen); Complete Time: 11:38 kdr 06/01 11:01 Order name: Urine Test (obtain specimen); Complete Time: 11:38 kdr Administered Medications: 11:38 Drug: Ketorolac 15 mg Route: IVP; Site: right antecubital; ld1 11:38 Drug: Zofran (Ondansetron) 4 mg Route: IVP; Site: right antecubital; ld1 11:38 Drug: NS 0.9% 1000 ml Route: IV; Rate: 1 bolus; Site: right antecubital; ld1 14:04 Drug: [place] (HYDROcodone-acetaminophen) 10 mg-325 mg 1 tabs Route: PO; ld1 14:19 Follow up: Response: No adverse reaction ld1 14:04 Drug: SOLU-Medrol (methylPrednisoLONE) 125 mg Route: IVP; Site: right antecubital; ld1 14:19 Follow up: Response: No adverse reaction ld1 Disposition Summary: 06/01/22 14:28 Discharge Ordered Location: Home kdr Problem: an ongoing problem kdr Symptoms: have improved kdr Condition: Stable kdr Diagnosis - Low back pain kdr Followup: kdr - With: Private Physician - When: 48 Hours - Reason: If symptoms return, Further diagnostic work-up, Recheck today's complaints, Continuance of care, Re-evaluation by your physician Discharge Instructions: - Discharge Summary Sheet kj1 Forms: - Medication Reconciliation Form kdr - Thank You Letter kdr - Antibiotic Education kdr - Prescription Opioid Use kdr - Work release form kj1 Signatures: Dispatcher [employer] EDSC Buddy Paige MD MD kdr Ed Wyatt RN RN ll1 Dibbern, Anat, RN RN ld1
[2022-06-01 14:56] VITALS: TEMP 98
[2022-06-01 15:13] VITALS: O2SAT 100
[2022-06-01 15:14] VITALS: BP 117/63
== END 2022-06-01 14:47 | disposition home or self-care (01) ==
LOC: ER 10:23
DX: M54.50 Low back pain, unspecified (principal)
CPT/HCPCS: 36415; 72131; 74176; 76377; 80048; 81003; 81025; 85025; 96374; 96375; 99284; J2405; J2930; J7030

== ENCOUNTER 2023-03-02 18:13 | Emergency (ER) | payer SELFPAY ==
--- OUTSIDE RECORDS SUMMARY | 2023-03-02 18:16 | XMS REPORT | Continuity of Care Document ---
:1985 Author Organization [facility] t Address [address] [address] Care Team Providers Name Role Phone [email or web address] Attending Clinician Unavailable [email or web address] Admitting Clinician Unavailable Payers Payer Name Policy Type Policy Number Effective Date Expiration Date S [facility] [id number] (O) Problems This patient has no known problems. Allergies, Adverse Reactions, Alerts This patient has no known allergies or adverse reactions. Medications This patient has no known medications. Procedures This patient has no known procedures. Encounters Start End Encounter Admission Attending Care Care Encounter Source Date/Time Date/Time Type Type Clinicians Facility Department ID 2023-01-22 2023-01-22 Outpatient [email or web address] PRIV PRIV [id number] [facility] 00:00:00 00:00:00 darrell_Daniela [id number] Med[facility] l 2022-12-24 2022-12-24 Outpatient SFA SFA [id number] Herman Maki 16:33:18 16:33:18 0830 F [place] Results This patient has no known results.
[2023-03-02] MEDS ORDERED: HYDROCODONE/APAP 5/325 MG TAB ONE (18:41)
[2023-03-02] MEDS ORDERED: KETOROLAC 30 MG/ML INJ ONE (18:41)
--- NOTE | 2023-03-02 20:00 | RAD REPORT ---
EXAM DESCRIPTION: RAD - Ankle Left 3 View - 03/02/2023 7:14 pm CLINICAL HISTORY: PAIN COMPARISON: Knee Right 3 View dated 03/02/2023 TECHNIQUE: Left ankle, 3 views. FINDINGS: No fracture, dislocation or periosteal reaction. Accessory ossicle along the dorsal margin of the navicular. Small calcaneal spur. No joint effusion seen. No joint space narrowing. Soft tissu e swelling about the ankle most pronounced anteriorly. IMPRESSION: Soft tissue swelling as above without acute osseous abnormality.
--- NOTE | 2023-03-02 20:00 | RAD REPORT ---
EXAM DESCRIPTION: RAD - Knee Right 3 View - 03/02/2023 7:14 pm CLINICAL HISTORY: PAIN COMPARISON: No comparisons TECHNIQUE: Right knee, 3 views. FINDINGS: No fracture, dislocation or periosteal reaction.No joint effusion seen. Mild to moderate t ricompartmental osteoarthritic changes, with joint space narrowing and subchondral irregularity most pronounced along the lateral compartment. IMPRESSION: No acute osseus abnormality. Up to moderate osteoarthritic changes as above.
--- NOTE | 2023-03-02 20:03 | ER ---
Nurse's Notes [facility] Name: [facility] Age: 38 yrs Sex: Female : 1985 Arrival Date: 03/02/2023 Time: 18:13 Bed 12 Private MD: Diagnosis: Sprain of ankle Presentation: 03/02 18:18 Chief complaint: Patient states: rolled her left ankle while coming out of front iw entrance of hospital , fell on right knee. Coronavirus screen: At this time, the client does not indicate any symptoms associated with coronavirus-19. Ebola Screen: Patient negative for fever greater than or equal to 101.5 degrees Fahrenheit, and additional compatible Ebola Virus Disease symptoms Patient denies exposure to infectious person. Patient denies travel to an Ebola-affected area in the 21 days before illness onset. No symptoms or risks identified at this time. Initial Sepsis Screen: Does the patient meet any 2 criteria? No. Patient's initial sepsis screen is negative. Does the patient have a suspected source of infection? No. Patient's initial sepsis screen is negative. Risk Assessment: Do you want to hurt yourself or someone else? Patient reports no desire to harm self or others. Onset of symptoms was March 02, 2023. 18:18 Method Of Arrival: Wheelchair iw 18:18 Acuity: ARCHIE 4 iw Historical: - Allergies: 18:19 No Known Allergies; iw - PMHx: 18:19 Anxiety; Depression; pinched sciatic nerve; iw - PSHx: 18:19 section; iw - Immunization history:: Adult Immunizations Last tetanus immunization: up to date. - Social history:: Smoking status: . Screenin:31 [facility] ED Fall Risk Assessment (Adult) History of falling in the last 3 months, kc6 including since admission Yes- single mechanical fall (1 pt) Confusion or Disorientation No (0 pts) Intoxicated or Sedated No (0 pts) Impaired Gait Yes (1 pt) Mobility Assist Device Used No (0 pt) Altered Elimination No (0 pt) Score/Fall Risk Level 0 - 2 = Low Risk. Abuse screen: Denies threats or abuse. Denies injuries from another. Nutritional screening: No deficits noted. Tuberculosis screening: No symptoms or risk factors identified. Assessment: 18:31 General: Appears in no apparent distress. comfortable, Behavior is calm, cooperative, kc6 appropriate for age. Pain: Complains of pain in left foot and right knee. Neuro: Level of Consciousness is awake, alert, obeys commands, Oriented to person, place, time, situation, Appropriate for age. Cardiovascular: Capillary refill < 3 seconds. Respiratory: Airway is patent Trachea midline Respiratory effort is even, unlabored, Respiratory pattern is regular, symmetrical. GI: No signs and/or symptoms were reported involving the gastrointestinal system. : No signs and/or symptoms were reported regarding the genitourinary system. EENT: No signs and/or symptoms were reported regarding the EENT system. Derm: Skin is healthy with good turgor, Skin is pink, warm \T\ dry. Musculoskeletal: Circulation, motion, and sensation intact. Capillary refill < 3 seconds, Range of motion: limited in left ankle. Injury Description: Abrasion sustained to right knee. 20:13 Reassessment: No changes from previously documented assessment. Patient and/or family mb9 updated on plan of care and expected duration. Pain level reassessed. Patient is alert, oriented x 3, equal unlabored respirations, skin warm/dry/pink. Vital Signs: 18:18 BP 124 / 60; Pulse 54; Resp 16; Temp 97.8; Pulse Ox 100% ; Weight 106.59 kg; Height 5 iw ft. 1 in. ; Pain 8/10; 20:14 BP 122 / 62; Pulse 61; Resp 16; Pulse Ox 100% on R/A; mb9 18:18 Body Mass Index 44.40 (106.59 kg, 154.94 cm) iw 18:18 Pain Scale: Adult iw ED Course: 18:18 Patient arrived in ED. iw 18:18 Herber Kennedy MD is Attending Physician. ec2 18:19 Triage completed. iw 18:20 Arm band placed on. iw 18:25 Jamila Meehan, SAGRARIO is Primary Nurse. kc6 18:31 Patient has correct armband on for positive identification. Bed in low position. Call kc6 light in reach. Side rails up X 1. Client placed on continuous cardiac and pulse oximetry monitoring. NIBP monitoring applied. 18:31 Patient maintains SpO2 saturation greater than 95% on room air. kc6 19:06 No provider procedures requiring assistance completed. mb9 19:16 Knee Right 3 View XRAY In Process Unspecified. EDMS 19:16 Ankle Left 3 View XRAY In Process Unspecified. EDMS 19:17 Primary Nurse role handed off by Jamila Meehan RN 20:14 Patient did not have IV access during this emergency room visit. mb9 Administered Medications: 18:30 Drug: Ketorolac IM 30 mg IM once Route: IM; Site: right deltoid; kc6 20:05 Follow up: Response: No adverse reaction mb9 18:30 Drug: HYDROcodone-acetaminophen PO 5 mg-325 mg 1 tabs PO once Route: PO; kc6 20:05 Follow up: Response: No adverse reaction mb9 Outcome: 20:02 Discharge ordered by . ec2 20:14 Discharged to home ambulatory, mb9 20:14 Condition: stable 20:14 Discharge instructions given to patient, Instructed on discharge instructions, follow up and referral plans. Demonstrated understanding of instructions, follow-up care, 20:14 Patient left the ED. mb9 Signatures: Dispatcher [employer] Milena Davis RN RN Ashley Gallagher Jamila Meehan RN RN kcRadha Barr RN RN mb9 Herber Kennedy MD MD ec2 Corrections: (The following items were deleted from the chart) 18:20 18:18 Pulse 54bpm; Resp 16bpm; Pulse Ox 100%; Temp 97.8F; 106.59 kg; Height 5 ft. 1 iw in.; BMI: 44.4; Pain 8/10, Adult; iw
--- NOTE | 2023-03-02 20:03 | EDPHYS ---
Physician Documentation [facility] Name: Erin Harper Age: 38 yrs Sex: Female : 1985 Arrival Date: 03/02/2023 Time: 18:13 Bed 12 Private MD: ED Physician Herber Kennedy HPI: 03/02 18:24 This 38 yrs old Female presents to ER via Wheelchair with complaints of Ankle Injury. ec2 18:24 Patient arrives today for evaluation after ground-level fall. States that she was ec2 walking subsequently tripped and fell, landing on her right knee and twisted her left ankle. Patient reports no head strike, no neck pain. No loss of consciousness. Patient states she is up-to-date on her tetanus shot.. Historical: - Allergies: 18:19 No Known Allergies; iw - PMHx: 18:19 Anxiety; Depression; pinched sciatic nerve; iw - PSHx: 18:19 section; iw - Immunization history:: Adult Immunizations Last tetanus immunization: up to date. - Social history:: Smoking status: . ROS: 18:24 Constitutional: as per hpi ec2 Exam: 18:24 Constitutional: GEN: NAD Head: atraumatic Eyes: EOMI Ears: External ears are ec2 normal. CV: regular rate LUNGS: no respiratory distress ABD: non-distended SKIN: Abrasion noted to the right knee MSK: TTP to the right knee, good range of motion. TTP to the left lateral and medial malleolus, intact distal neurovascular status. NEURO: moves all extremities equally Vital Signs: 18:18 BP 124 / 60; Pulse 54; Resp 16; Temp 97.8; Pulse Ox 100% ; Weight 106.59 kg; Height 5 iw ft. 1 in. ; Pain 8/10; 20:14 BP 122 / 62; Pulse 61; Resp 16; Pulse Ox 100% on R/A; mb9 18:18 Body Mass Index 44.40 (106.59 kg, 154.94 cm) iw 18:18 Pain Scale: Adult iw MDM: 18:19 Patient medically screened. ec2 18:24 Data reviewed: vital signs. ED course: Patient arrives today for evaluation after ec2 ground-level fall. Examination remarkable for MSK findings as noted above. Will defer tetanus shot as patient is up-to-date. Will obtain radiographs of the left ankle and right knee. We will treat the patient with Toradol as well as [place]. Currently considering skin abrasion, bone contusion, ankle sprain, fracture. . 20:01 ED course: Left ankle x-ray as well as right knee x-ray independently reviewed and ec2 interpreted by me, shows no acute bony fracture.. 20:02 ED course: On reassessment patient is well-appearing in no acute distress. Will ec2 discharge home, return precautions given. . 03/02 18:23 Order name: Knee Right 3 View XRAY; Complete Time: 20:02 ec2 03/02 18:23 Order name: Ankle Left 3 View XRAY; Complete Time: 20:02 ec2 03/02 20:03 Order name: Tim Wrap; Complete Time: 20:05 ec2 Administered Medications: 18:30 Drug: Ketorolac IM 30 mg IM once Route: IM; Site: right deltoid; kc6 20:05 Follow up: Response: No adverse reaction mb9 18:30 Drug: HYDROcodone-acetaminophen PO 5 mg-325 mg 1 tabs PO once Route: PO; kc6 20:05 Follow up: Response: No adverse reaction mb9 Disposition Summary: 03/02/23 20:02 Discharge Ordered Notes: Location: Home ec2 Condition: Stable ec2 Diagnosis - Sprain of ankle ec2 Discharge Instructions: - Discharge Summary Sheet ec2 - Ankle Sprain ec2 Forms: - Medication Reconciliation Form ec2 - Thank You Letter ec2 - Antibiotic Education ec2 - Prescription Opioid Use ec2 - Patient Portal Instructions ec2 - Leadership Thank You Letter ec2 Signatures: Dispatcher [employer] Milena Davis RN RN iw Campbell, Kaitlyn, RN RN kc6 Herber Kennedy MD MD ec2 Radha Mak RN mb9
[2023-03-02 20:49] VITALS: TEMP 97.8; O2SAT 100
[2023-03-02 20:51] VITALS: BP 122/62
== END 2023-03-02 20:14 | disposition home or self-care (01) ==
LOC: ER 18:13
DX: S93.402A Sprain of unspecified ligament of left ankle, initial encounter (principal)
CPT/HCPCS: 96372; 99284

== ENCOUNTER 2024-04-28 05:15 | Emergency (ER) | payer OTHER, SELFPAY ==
--- OUTSIDE RECORDS SUMMARY | 2024-04-28 05:18 | XMS REPORT | Continuity of Care Document ---
Author Name Unknown Address [address] [place] [address] [facility] thconnect Address [address] [place] [address] Care Team Providers Care Branch Sales And Service Representative Name Role Phone [email or web address] Attending Clinician Unavailable [email or web address] Admitting Clinician Unavailable Payers Payer Name Policy Type Policy Number Effective Date Expirati on Date Source [facility] [place] [id number] Encounters Start Date/Time End Date/Time Encounter Type Admission Type Attending Clinicians Care Facility Care Department Encounter ID Source 2023-08-27 16:12:23 2023-08-27 16:12:23 Outpatient [facility] [id number] 2023-08-24 16:38:15 2023-08-24 16:38:15 Outpatient [facility] [id number] 2023-01-22 00:00:00 2023-01-22 00:00:00 Outpatient [email or web address] [facility] [id number] [facility] 2022-12-24 16:33:18 2022-12-24 16:33:18 Outpatient [facility] [address]
[2024-04-28] MEDS ORDERED: MORPHINE 4 MG/ML SYR ONE (05:51)
[2024-04-28] MEDS ORDERED: NA CHLORIDE 0.9% 1,000 ML ONE ×2 (05:51→06:06)
[2024-04-28] MEDS ORDERED: ONDANSETRON 4 MG/2 ML VIAL ONE (05:51)
[2024-04-28 06:04] LABS: Absolute Eosinophils 0.2 K/uL (0-0.5); Absolute Lymphocytes (CBC) 3.1 K/uL (0.7-4.9); Absolute Monocytes 0.7 K/uL (0.1-1.3); Absolute Neutrophil 4.3 K/uL (1.8-8.0); Basophils % 0.5 % (0-1.3); Hematocrit 40.3 % (36.0-45.0); Hemoglobin 13.8 g/dL (12.0-15.0); Lymphocytes % 37.6 % (15.3-44.8); MCH 29.9 pg (27.0-35.0); MCHC 34.3 g/dL (32.0-36.0); MCV 87.4 fL (80-100); Monocytes % 8.6 % (3.3-12.3); Neutrophils % 51.3 % (41.7-73.7); Platelets 292 thou/uL (152-406); RBC Red Blood Cell Count 4.61 M/uL (3.86-4.86); Red Cell Distribution Width 13.4 % (12.1-15.2)
[2024-04-28] MEDS ORDERED: KETOROLAC 30 MG/ML INJ ONE (06:06)
[2024-04-28 06:17] LABS: Urine Bacteria 20-50 /HPF (<20); Urine Bilirubin NEGATIVE (Negative); Urine Blood Negative (Negative); Urine Clarity Extremely Turbid (Clear); Urine Color Yellow (Yellow); Urine Culture Reflex Order NOT NEEDED; Urine Glucose NEGATIVE (Negative); Urine Ketones NEGATIVE (Negative); Urine Microscopic Reflex YN ORDER UMIC; Urine Mucus Slight /HPF (None Seen); Urine Nitrite NEGATIVE (Negative); Urine Protein TRACE (Negative); Urine RBC <5 /HPF (None Seen); Urine Urobilinogen Normal (Normal); Urine WBC <5 /HPF (<5); Urine pH 6.5 (5.0-7.0)
[2024-04-28 06:19] LABS: Albumin 3.5 g/dL (3.4-5.0); Bilirubin Total 0.3 mg/dL (0.2-1.0); Globulin 3.6 g/dL (2.3-3.5); Protein, Total 7.1 g/dL (6.4-8.2)
[2024-04-28] MEDS ORDERED: DICYCLOMINE HCL 20 MG/2 ML AMP IM ONE (06:50)
--- NOTE | 2024-04-28 07:43 | RAD REPORT ---
EXAM: Chest Abdomen Pelvis W Cont CLINICAL INDICATION: Chest and abdominal pain TECHNIQUE: CT chest, abdomen and pelvis was performed, with 100 cc Isovue-300 IV contrast, as per de partment protocol. Axial, sagittal and coronal reconstructions were obtained. One or more of the following dose reduction techniques were used: Automated exposure control, adjustment of the mA and/o r kV according to the patient size, and/or iterative reconstruction. Unless otherwise specified, incidental findings do not require dedicated imaging follow-up. [id number]. Oral contrast not given. This limits evaluation of the bowel. COMPARISON: CT abdomen 2022 FINDINGS: Calcified granuloma left lung. No mediastinal or hilar lymphadenopathy No pleural effusion.. No pericardial effusion Liver, spleen, pancreas, adrenals, and kidneys appear unremarkable. There is no evidence of diverticulitis Normal appendix. 2.2 cm right ovarian cyst. No follow-up imaging recommended. No significant free fluid. Small umbilical hernia IMPRESSION: 2.2 cm right ovarian cyst without significant free fluid
--- NOTE | 2024-04-28 07:44 | RAD REPORT ---
EXAM: Right upper quadrant ultrasound. CLINICAL HISTORY: Abdominal pain COMPARISON: None FINDINGS: A gallstone is not seen. 3 mm gallbladder polyp. Gallbladder wall not thickened. Biliary tree normal caliber IMPRESSION: 3 mm gallbladder polyp
--- NOTE | 2024-04-28 07:56 | ER ---
Nurse's Notes [facility] Name: Erin Harper Age: 39 yrs Sex: Female : 1985 Arrival Date: 04/28/2024 Time: 05:15 Bed 6 Private MD: Diagnosis: Abdominal pain, Generalized;Other ovarian cysts Presentation: 04/28 05:34 Chief complaint: Patient states: C/O ABDOMINAL PAIN (SHARP) FOR THE LAST 3 DAYS. DENIES br2 N/V/D. Coronavirus screen: Client denies travel out of the [place] in the last 14 days. Ebola Screen: Patient denies exposure to infectious person. Patient denies travel to an Ebola-affected area in the 21 days before illness onset. Initial Sepsis Screen: Does the patient meet any 2 criteria? No. Patient's initial sepsis screen is negative. Does the patient have a suspected source of infection? No. Patient's initial sepsis screen is negative. Risk Assessment: Do you want to hurt yourself or someone else? Patient reports no desire to harm self or others. Onset of symptoms was April 25, 2024. 05:34 Method Of Arrival: Ambulatory br2 05:34 Acuity: ARCHIE 3 br2 Triage Assessment: 05:37 General: Appears uncomfortable, Behavior is calm, cooperative. Pain: Complains of pain br2 in abdomen Pain does not radiate. Pain currently is 8 out of 10 on a pain scale. EENT: No signs and/or symptoms were reported regarding the EENT system. Neuro: [place] Agitation-Sedation Scale (RASS): 0 - Alert and Calm Level of Consciousness is awake, alert, obeys commands, Oriented to person, place, time, situation. Cardiovascular: Capillary refill < 3 seconds. Respiratory: Airway is patent Respiratory effort is even, unlabored, Respiratory pattern is regular, symmetrical. GI: Reports lower abdominal pain, upper abdominal pain, bloating, cramping, flatulence, gaseousness. Historical: - PMHx: 05:37 Anxiety; Depression; pinched sciatic nerve; Irritable bowel syndrome; br2 - PSHx: 05:37 section; br2 - Immunization history:: Adult Immunizations up to date. - Infectious Disease History:: Denies. - Social history:: Smoking status: Patient/guardian denies using tobacco, Stopped _ months ago 2. - Family history:: not pertinent. Screenin:34 [facility] ED Fall Risk Assessment (Adult) History of falling in the last 3 months, br2 including since admission No falls in past 3 months (0 pts) Confusion or Disorientation No (0 pts) Intoxicated or Sedated No (0 pts) Impaired Gait No (0 pts) Mobility Assist Device Used No (0 pt) Altered Elimination No (0 pt) Score/Fall Risk Level 0 - 2 = Low Risk Oriented to surroundings. Abuse screen: Denies threats or abuse. Denies injuries from another. Nutritional screening: No deficits noted. Tuberculosis screening: No symptoms or risk factors identified. Assessment: 05:37 General: Appears in no apparent distress. uncomfortable, Behavior is calm, cooperative, jj7 appropriate for age. Pain: Complains of pain in abdomen. GI: Reports lower abdominal pain, upper abdominal pain, bloating, flatulence, gaseousness. Vital Signs: 05:34 BP 105 / 87; Pulse 77; Resp 18; Temp 97.8; Pulse Ox 97% on R/A; Weight 117.93 kg; br2 Height 5 ft. 1 in. ; Pain 8/10; 06:25 BP 119 / 88; Pulse 67; Resp 18; Pulse Ox 100% on R/A; jj7 08:11 BP 117 / 79; Pulse 60; Resp 15; Pulse Ox 99% ; bp 05:34 Body Mass Index 49.13 (117.93 kg, 154.94 cm) br2 05:34 Pain Scale: Adult br2 [place] Coma Score: 07:22 Eye Response: spontaneous(4). Motor Response: obeys commands(6). Verbal Response: sp4 oriented(5). Total: 15. ED Course: 05:16 Patient arrived in ED. jj6 05:25 Jem Main MD is Attending Physician. sp4 05:26 Aisha Curran RN is Primary Nurse. br2 05:34 Patient has correct armband on for positive identification. Placed in gown. Bed in low br2 position. Call light in reach. Side rails up X 1. Provided Education on: PLAN OF CARE. 05:36 Triage completed. br2 05:37 Arm band placed on. br2 05:45 Inserted saline lock: 20 gauge in right antecubital area, using aseptic technique. jj7 Blood collected. Flushed with 10 mL NS. 05:59 CBC with Diff Sent. jj7 05:59 CMP Sent. jj7 05:59 Lipase Sent. jj7 05:59 Test, Urine Sent. jj7 05:59 Urinalysis w/ reflexes Sent. jj7 06:35 US Abdomen Limited In Process Unspecified. EDMS 06:59 Report given to JAGDISH ZABALA. jj7 07:04 Primary Nurse role handed off by Aisha Curran, [place] bp 07:04 Kun Garcia, RN is Primary Nurse. bp 07:06 CT Chest, Abdomen, Pelvis - W/Contrast In Process Unspecified. EDMS 07:50 Attending Physician role handed off by Jem Main MD ec2 07:50 Herber Kennedy MD is Attending Physician. ec2 08:11 No provider procedures requiring assistance completed. IV discontinued, intact, bp bleeding controlled, No redness/swelling at site. Pressure dressing applied. Administered Medications: 05:59 Drug: NS 0.9% IV 1000 ml IV at 1 bolus Per protocol; to be given as a bolus over 60 jj7 minutes Route: IV; Rate: 1 bolus; Site: right antecubital; 08:13 Follow up: IV Status: Completed infusion bp 05:59 Drug: morphine IVP or IV 4 mg IVP once over 4 mins Route: IVP; Infused Over: 4 mins; jj7 Site: right antecubital; 06:24 Follow up: Response: Pain is unchanged, physician notified jj7 05:59 Drug: Ondansetron IVP 4 mg IVP once; over 2 minutes Route: IVP; Site: right antecubital;jj7 06:24 Follow up: Response: Nausea is decreased jj7 06:24 Drug: Ketorolac IVP 30 mg IVP once Route: IVP; Site: right antecubital; jj7 06:54 Follow up: Response: Pain is decreased jj7 06:24 Drug: NS 0.9% IV 1000 ml IV at 125 ml/hr Per protocol; to be given as a bolus over 60 jj7 minutes Route: IV; Rate: 125 ml/hr; Site: right antecubital; 08:13 Follow up: IV Status: Completed infusion bp 06:53 Drug: Dicyclomine IM 20 mg IM once Route: IM; Site: right deltoid; jj7 08:13 Follow up: Response: No adverse reaction bp Medication: 05:37 VIS not applicable for this client. jj7 Outcome: 07:56 Discharge ordered by . ec2 08:11 Discharged to home ambulatory, bp 08:11 Condition: stable 08:11 Discharge instructions given to patient, Instructed on discharge instructions, follow up and referral plans. medication usage, Demonstrated understanding of instructions, follow-up care, medications, Prescriptions given X 2, 08:13 Patient left the ED. bp Signatures: Dispatcher [employer] EDMS Kun Garcia, RN RN bp Emma Prabhakar jj6 Kyaw Poon RN RN jj7 Jem Main MD MD sp4 Herber Kennedy MD MD ec2 Aisha Curran RN RN br2
--- NOTE | 2024-04-28 07:56 | EDPHYS ---
Physician Documentation [facility] Name: Erin Harper Age: 39 yrs Sex: Female : 1985 Arrival Date: 04/28/2024 Time: 05:15 Bed 6 Private MD: ED Physician Herber Kennedy HPI: 04/28 05:41 This 39 yrs old Female presents to ER via Ambulatory with complaints of sp4 Epigastric Pain, Abdominal Pain, Abdominal Swelling. 07:21 39-year-old female presents with diffuse abdominal pain associated with epigastric pain sp4 and reported abdominal swelling.. 07:22 Pain is worsened acutely in the last 3 days.. sp4 Historical: - PMHx: 05:37 Anxiety; Depression; pinched sciatic nerve; Irritable bowel syndrome; br2 - PSHx: 05:37 section; br2 - Immunization history:: Adult Immunizations up to date. - Infectious Disease History:: Denies. - Social history:: Smoking status: Patient/guardian denies using tobacco, Stopped _ months ago 2. - Family history:: not pertinent. ROS: 07:22 Constitutional: Negative for fever, chills, and weight loss, positive for diffuse sp4 abdominal pain 07:22 All other systems are negative, Exam: 07:22 Constitutional: This is a well developed, well nourished patient who is awake, alert, sp4 and in no acute distress. Head/Face: Normocephalic, atraumatic. Eyes: Pupils equal round and reactive to light, extra-ocular motions intact. Lids and lashes normal. Conjunctiva and sclera are not injected. Cornea within normal limits. Periorbital areas with no swelling, redness, or edema. ENT: Nares patent. No nasal discharge, no septal abnormalities noted. Tympanic membranes are normal and external auditory canals are clear. Oropharynx with no redness, swelling, or masses, exudates, or evidence of obstruction, uvula midline. Mucous membranes moist. Neck: Trachea midline, no thyromegaly or masses palpated, and no cervical lymphadenopathy. Supple, full range of motion without nuchal rigidity, or vertebral point tenderness. Chest/axilla: Normal chest wall appearance and motion. Nontender with no deformity. No lesions are appreciated. Cardiovascular: Regular rate and rhythm with a normal S1 and S2. No gallops, murmurs, or rubs. Normal PMI, no JVD. No pulse deficits. Respiratory: Lungs have equal breath sounds bilaterally, clear to auscultation and percussion. No rales, rhonchi or wheezes noted. No increased work of breathing, no retractions or nasal flaring. Abdomen/GI: Soft, with normal bowel sounds. No distension or tympany. No guarding or rebound. Positive for diffuse abdominal tenderness. No peritoneal signs Back: No spinal tenderness. No costovertebral tenderness. Skin: Warm, dry with normal turgor. Normal color with no rashes, no lesions, and no evidence of cellulitis. MS/ Extremity: Pulses equal, no cyanosis. Neurovascular intact. Full, normal range of motion. Neuro: Awake and alert, GCS 15, oriented to person, place, time, and situation. Cranial nerves II-XII grossly intact. Motor strength 5/5 in all extremities. Sensory grossly intact. Psych: Awake, alert, with orientation to person, place and time. Behavior, mood, and affect are within normal limits Vital Signs: 05:34 BP 105 / 87; Pulse 77; Resp 18; Temp 97.8; Pulse Ox 97% on R/A; Weight 117.93 kg; br2 Height 5 ft. 1 in. ; Pain 8/10; 06:25 BP 119 / 88; Pulse 67; Resp 18; Pulse Ox 100% on R/A; jj7 08:11 BP 117 / 79; Pulse 60; Resp 15; Pulse Ox 99% ; bp 05:34 Body Mass Index 49.13 (117.93 kg, 154.94 cm) br2 05:34 Pain Scale: Adult br2 [place] Coma Score: 07:22 Eye Response: spontaneous(4). Motor Response: obeys commands(6). Verbal Response: sp4 oriented(5). Total: 15. MDM: 05:25 Medical Screening Exam initiated sp4 07:22 Differential diagnosis: bowel obstruction, diverticulitis, gastroesophageal reflux sp4 disease, Hepatitis. Data reviewed: vital signs, nurses notes, lab test result(s), radiologic studies, CT scan, ultrasound. Consideration of Admission/Observation Escalation of care including admission/observation considered. Transition of care: After a detail discussion of the patient's case, care is transferred to Herber Kennedy MD. 07:50 ED course: CT imaging shows a nonactionable gallbladder polyp without infection. ec2 Ultrasound shows ovarian cyst. On reassessment patient is hemodynamically stable, well-appearing in no acute distress. Will discharge home. Return precautions given.. 04/28 05:36 Order name: CBC with Diff; Complete Time: 06:48 jj7 04/28 05:36 Order name: CMP; Complete Time: 06:48 jj7 04/28 05:36 Order name: Lipase; Complete Time: 06:48 jj7 04/28 05:36 Order name: Test, Urine; Complete Time: 06:48 jj7 04/28 05:36 Order name: Urinalysis w/ reflexes; Complete Time: 06:48 jj7 04/28 05:42 Order name: CT Chest, Abdomen, Pelvis - W/Contrast; Complete Time: 07:45 sp4 04/28 05:56 Order name: US Abdomen Limited; Complete Time: 07:45 sp4 04/28 05:36 Order name: IV Saline Lock; Complete Time: 05:45 jj04/28 05:36 Order name: Labs collected and sent; Complete Time: 05:45 jj7 Administered Medications: 05:59 Drug: NS 0.9% IV 1000 ml IV at 1 bolus Per protocol; to be given as a bolus over 60 jj7 minutes Route: IV; Rate: 1 bolus; Site: right antecubital; 08:13 Follow up: IV Status: Completed infusion bp 05:59 Drug: morphine IVP or IV 4 mg IVP once over 4 mins Route: IVP; Infused Over: 4 mins; jj7 Site: right antecubital; 06:24 Follow up: Response: Pain is unchanged, physician notified jj7 05:59 Drug: Ondansetron IVP 4 mg IVP once; over 2 minutes Route: IVP; Site: right antecubital;jj7 06:24 Follow up: Response: Nausea is decreased jj7 06:24 Drug: Ketorolac IVP 30 mg IVP once Route: IVP; Site: right antecubital; jj7 06:54 Follow up: Response: Pain is decreased jj7 06:24 Drug: NS 0.9% IV 1000 ml IV at 125 ml/hr Per protocol; to be given as a bolus over 60 jj7 minutes Route: IV; Rate: 125 ml/hr; Site: right antecubital; 08:13 Follow up: IV Status: Completed infusion bp 06:53 Drug: Dicyclomine IM 20 mg IM once Route: IM; Site: right deltoid; jj7 08:13 Follow up: Response: No adverse reaction bp Disposition Summary: 04/28/24 07:56 Discharge Ordered Notes: Location: Home ec2 Condition: Stable ec2 Diagnosis - Abdominal pain, Generalized ec2 - Other ovarian cysts ec2 Followup: ec2 - With: Private Physician - When: - Reason: Re-evaluation by your physician Discharge Instructions: - Discharge Summary Sheet ec2 - Abdominal Pain, Adult ec2 Forms: - Medication Reconciliation Form ec2 - Antibiotic Education ec2 - Prescription Opioid Use ec2 - Patient Portal Instructions ec2 - Leadership Thank You Letter ec2 Prescriptions: - Zofran 4 mg Oral Tablet - take 1 tablet ORAL route every 12 hours As needed; 20 tablet; Refills: 0, ec2 Product Selection Permitted - dicyclomine 10 mg Oral capsule - take 1 capsule ORAL route 3 times per day; 15 capsule; Refills: 0, Product ec2 Selection Permitted Signatures: Dispatcher [employer] EDKyaw Taylor RN RN jj7 Jem Main MD MD sp4 Herber Kennedy MD MD ec2 Aisha Curran RN RN br2 Kun Garcia RN bp Corrections: (The following items were deleted from the chart) 05:36 05:36 CBC+H.LAB.BRZ ordered. EDMS EDMS 05:36 05:36 COMPREHENSIVE METABOLIC PANEL+C.LAB.BRZ ordered. EDMS EDMS 05:36 05:36 LIPASE+C.LAB.BRZ ordered. EDMS EDMS 05:36 05:36 Test, Urine+UC.LAB.BRZ ordered. EDMS EDMS 05:36 05:36 Urinalysis+U.LAB.BRZ ordered. EDMS EDMS 05:42 05:42 Chest Abdomen Pelvis W Con+CT.RAD.BRZ ordered. EDMS EDMS
[2024-04-28 09:08] VITALS: TEMP 97.8
[2024-04-28 09:10] VITALS: BP 117/79; O2SAT 99
== END 2024-04-28 08:13 | disposition home or self-care (01) ==
LOC: ER 05:15
DX: R10.84 Generalized abdominal pain (principal); N83.299 Other ovarian cyst, unspecified side; Z87.891 Personal history of nicotine dependence
CPT/HCPCS: 36415; 71260; 74177; 76705; 80053; 81001; 81025; 83690; 85025; 96361; 96372; 96374; 96375; 99284; J0500; J2405; J7030; Q9967